=== PATIENT | female | born 1970 | race Caucasian/White ===

== ENCOUNTER 2018-07-22 09:13 | Day surgery (SDC) ==
[2018-07-22] MEDS ORDERED: BRIMONIDINE TARTRATE 0.2% OPTH SOL OP PRN (10:31)
[2018-07-22] MEDS ORDERED: BSS WITH EPINEPHRINE OP ONE (10:31)
[2018-07-22] MEDS ORDERED: DEX-MOXI-KETOR OPTH INJ 1/0.5/0.4 MG/ML IO ONE (10:31)
[2018-07-22] MEDS ORDERED: LIDOCAINE 1%/PHENYLEPHRINE 1.5% BSS (SURGERY) INTRAOCULA ONE (10:31)
[2018-07-22] MEDS ORDERED: ZOFRAN 4 MG/2 ML IVP ONE (10:31)
[2018-07-22] MEDS: BETADINE OPTH PREP OP PRN ×2 (10:39→10:55)
[2018-07-22] MEDS: TETRACAINE 0.5% UNIT-DOSE OP PRN ×2 (10:39→10:55)
[2018-07-22] MEDS: CYCLOGYL 2% OPTH OP PRN ×3 (10:40→10:50)
[2018-07-22] MEDS ORDERED: VERSED ONE (11:14)
[2018-07-22] MEDS ORDERED: SUBLIMAZE ONE (11:14)
[2018-07-22] MEDS ORDERED: DIPRIVAN 20 ML VIAL IVP ONE (11:14)
[2018-07-22] MEDS ORDERED: ZOFRAN 4 MG/2 ML ONE (11:14)
[2018-07-22 11:16] LABS: URINE PREGNANCY TEST NEGATIVE (NEGATIVE)
[2018-07-22] MEDS ORDERED: LIDOCAINE 1% 20 ML MDV ID STA (11:35)
[2018-07-22 12:47] VITALS: TEMP 98.6
[2018-07-22 12:58] VITALS: BP 123/56
== END 2018-07-22 11:50 | disposition home or self-care (01) ==
LOC: SURG 09:13
PROVIDERS: ATTEND Ophthalmology
DX: H52.221 Regular astigmatism, right eye (principal)
CPT/HCPCS: 81025

== ENCOUNTER 2018-08-05 08:00 | Day surgery (SDC) ==
[2018-08-05] MEDS: TETRACAINE 0.5% UNIT-DOSE OP PRN ×2 (09:15→10:00)
[2018-08-05] MEDS: BETADINE OPTH PREP OP PRN ×2 (09:15→10:00)
[2018-08-05] MEDS: CYCLOGYL 2% OPTH OP PRN ×3 (09:16→09:26)
[2018-08-05] MEDS ORDERED: BRIMONIDINE TARTRATE 0.2% OPTH SOL OP PRN (09:28)
[2018-08-05] MEDS ORDERED: DEX-MOXI-KETOR OPTH INJ 1/0.5/0.4 MG/ML IO ONE (09:28)
[2018-08-05] MEDS ORDERED: BSS WITH EPINEPHRINE OP ONE (09:28)
[2018-08-05] MEDS ORDERED: LIDOCAINE 1% 20 ML MDV ID STA (09:28)
[2018-08-05] MEDS ORDERED: LIDOCAINE 1%/PHENYLEPHRINE 1.5% BSS (SURGERY) INTRAOCULA ONE (09:28)
[2018-08-05] MEDS ORDERED: ZOFRAN 4 MG/2 ML IVP ONE (09:28)
[2018-08-05 09:44] LABS: URINE PREGNANCY TEST NEGATIVE (NEGATIVE)
[2018-08-05] MEDS ORDERED: ZOFRAN 4 MG/2 ML ONE (10:05)
[2018-08-05] MEDS ORDERED: DIPRIVAN 20 ML VIAL IVP ONE (10:05)
[2018-08-05] MEDS ORDERED: VERSED ONE (10:05)
[2018-08-05] MEDS ORDERED: SUBLIMAZE ONE (10:05)
[2018-08-05 12:32] VITALS: TEMP 97.7
[2018-08-05 15:19] VITALS: BP 136/68
== END 2018-08-05 11:00 | disposition home or self-care (01) ==
LOC: SURG 08:00
PROVIDERS: ATTEND Ophthalmology
DX: H52.222 Regular astigmatism, left eye (principal)
CPT/HCPCS: 81025